=== PATIENT | male | born 1985 | race Hispanic/Latino ===

== ENCOUNTER 2018-01-30 14:08 | Emergency (ER) | payer SELFPAY ==
[~2018-01-30] VITALS: Ht 167.6 cm; Wt 80.8 kg
[2018-01-30] MEDS ORDERED: BENADRYL 50MG C50 MG PO (14:41)
[2018-01-30 14:50] VITALS: BP 106/66
== END 2018-01-30 14:50 | disposition home or self-care (01) | DRG 607 ==
LOC: ED 14:08
DX: R21 Rash and other nonspecific skin eruption (principal); F17.210 Nicotine dependence, cigarettes, uncomplicated; X58.XXXA Exposure to other specified factors, initial encounter

== ENCOUNTER 2018-11-11 18:31 | Emergency (ER) | payer SELFPAY ==
[~2018-11-11] VITALS: Ht 167.6 cm; Wt 75.0 kg
[~2018-11-11 18:31] MED LIST: BENADRYL 50MG C50 MG PO
[2018-11-11] MEDS ORDERED: BACTROBAN TOP (19:27)
[2018-11-11] MEDS ORDERED: ELIMITE52 TOP ×2 (19:27→19:34)
[2018-11-11] MEDS ORDERED: KEFLEX500 M1 PO (19:27)
[2018-11-11 19:30] VITALS: BP 124/68
== END 2018-11-11 19:30 | disposition home or self-care (01) | DRG 607 ==
LOC: ED 18:31
DX: B86 Scabies (principal); L01.00 Impetigo, unspecified; F17.210 Nicotine dependence, cigarettes, uncomplicated

== ENCOUNTER 2018-12-03 21:02 | Emergency (ER) | payer SELFPAY ==
[~2018-12-03] VITALS: Ht 167.6 cm; Wt 77.2 kg
[~2018-12-03 21:02] MED LIST changes: +BACTROBAN TOP; +ELIMITE52 TOP; +KEFLEX500 M1 PO
[2018-12-03] MEDS ORDERED: ELIMITE52 TOP (21:21)
[2018-12-03] MEDS ORDERED: BENADRYL 50MG C50 MG PO (21:22)
[2018-12-03 21:27] VITALS: BP 115/77
== END 2018-12-03 21:33 | disposition home or self-care (01) | DRG 607 ==
LOC: ED 21:02
DX: B86 Scabies (principal); F17.210 Nicotine dependence, cigarettes, uncomplicated